=== PATIENT | male | born 1955 | race American Indian/Alaskan Native ===

== ENCOUNTER 2018-06-11 14:30 | Emergency (ER) | payer OTHER ==
[2018-06-11 15:22] VITALS: BP 157/87
[2018-06-11] MEDS ORDERED: ZOFRAN ODT PO ONE (17:52)
[2018-06-11] MEDS ORDERED: NORCO 10/325 PO ONE (17:52)
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
== END 2018-06-11 19:59 | disposition home or self-care (01) ==
LOC: ED 14:30
DX: S16.1XXA Strain of muscle, fascia and tendon at neck level, initial encounter (principal); S09.90XA Unspecified injury of head, initial encounter; E11.9 Type 2 diabetes mellitus without complications; V49.49XA Driver injured in collision with other motor vehicles in traffic accident, initial encounter; Y93.89 Activity, other specified; Y92.89 Other specified places as the place of occurrence of the external cause; Y99.8 Other external cause status
CPT/HCPCS: 70450; 72125; Q0162